=== PATIENT | female | born 2000 ===

== ENCOUNTER 2021-02-09 17:54 | Outpatient (CLI) | payer OTHER ==
[2021-02-09 18:31] VITALS: BP 106/60
[2021-02-09] MEDS ORDERED: LACTATED RINGERS 1,000 ML IV ONE (18:37)
[2021-02-09 19:09] LABS: Bilirubin,Urine NEG (Negative); Blood,Urine NEG (Negative); Color,Urine Yellow (Yellow); Protein,Urine <15 mg/dL mg/dL (Negative)
[2021-02-09] MEDS ORDERED: ONDANSETRON 4 MG/2 ML INJ IV ONE (20:29)
[2021-02-09] MEDS ORDERED: ONDANSETRON 4 MG/2 ML INJ ONE (20:30)
--- NOTE | 2021-02-09 23:01 | Ultrasound Report ---
ULTRASOUND OBSTETRIC LIMITED ULTRASOUND BIOPHYSICAL PROFILE INDICATION / CLINICAL INFORMATION: well being. Clinical Gestational Age (GA) in weeks, days: 34 weeks TECHNIQUE: Transabdominal. COMPARISON: None available. FINDINGS: BREATHING MOVEMENT = 2 GROSS BODY MOVEMENT = 2 TONE = 2 QUALITATIVE AMNIOTIC FLUID VOLUME = 2 TOTAL BIOPHYSICAL SCORE = 8/8 HEART RATE (beats per minute): 120 AMNIOTIC FLUID INDEX (cm) = 13.2 (normal = 7-24 cm) PRESENTATION: Cephalic. ADDITIONAL FINDINGS: Placenta is located anteriorly without evidence of previa. Placental grade is 1 IMPRESSION: 1. Biophysical Score = 8/8 2. Single viable IUP in a cephalic presentation with normal EMMANUEL. Signer Name: Lupe Aguila MD Signed: 02/09/2021 10:56 PM Workstation Name: [id number]
== END 2021-02-09 21:00 | disposition home or self-care (01) ==
LOC: TRG 17:54 → APU 17:55 → TRG 21:00
PROVIDERS: ATTEND Obstetrics & Gynecology
DX: Z34.93 Encounter for supervision of normal pregnancy, unspecified, third trimester (principal); Z3A.34 34 weeks gestation of pregnancy
CPT/HCPCS: 59025; 76815; 76819; 81001; 96360; 96361; 96374; J2405; J7120

== ENCOUNTER 2021-03-22 21:48 | Inpatient (IN) | payer OTHER ==
[2021-03-23] MEDS ORDERED: LACTATED RINGERS 1,000 ML IV ONE (00:31)
--- NOTE | 2021-03-23 03:16 | Ultrasound Report ---
ULTRASOUND OBSTETRIC LIMITED ULTRASOUND BIOPHYSICAL PROFILE INDICATION / CLINICAL INFORMATION: TERM. Clinical Gestational Age (GA) in weeks, days: 40 TECHNIQUE: Transabdominal. COMPARISON: 02/09/2021 FINDINGS: BREATHING MOVEMENT = 0 GROSS BODY MOVEMENT = 2 TONE = 2 QUALITATIVE AMNIOTIC FLUID VOLUME = 2 TOTAL BIOPHYSICAL SCORE = 8/8 HEART RATE (beats per minute): 158 AMNIOTIC FLUID INDEX (cm) = 14.4 (normal = 7-24 cm) PRESENTATION: Cephalic. ADDITIONAL FINDINGS: None. IMPRESSION: 1. Biophysical Score = 6/8 Signer Name: Tee Sandy MD Signed: 03/23/2021 3:11 AM Workstation Name: [id number] [employer]
[2021-03-23] MEDS ORDERED: LIDOCAINE (2%) 20 MG/1 ML VIAL 20 ML MDV INFILTRATI ONE ×2 (03:51→23:58)
[2021-03-23] MEDS ORDERED: BUTORPHANOL 2 MG/1 ML INJ IV PRN (03:51)
[2021-03-23] MEDS ORDERED: fentaNYL 100 MCG/2 ML INJ IV PRN (03:51)
[2021-03-23] MEDS ORDERED: miSOPROStol 200 MCG TAB PR PRN (03:51)
[2021-03-23] MEDS ORDERED: OXYTOCIN 10 UNIT/1 ML INJ IM PRN (03:51)
[2021-03-23] MEDS ORDERED: ACETAMINOPHEN 325 MG TAB PO PRN (03:51)
[2021-03-23] MEDS ORDERED: ePHEDrine SULFATE 50 MG/1 ML INJ IV PRN ×2 (03:51→15:34)
[2021-03-23] MEDS ORDERED: LOPERAMIDE 2 MG CAP PO PRN (03:51)
[2021-03-23] MEDS ORDERED: METHYLERGONOVINE MALEATE 0.2 MG/ML VIAL IM PRN (03:51)
[2021-03-23] MEDS ORDERED: MINERAL OIL 30 ML ORAL LIQD PO PRN (03:51)
[2021-03-23] MEDS ORDERED: CARBOPROST TROMETHAMINE 250 MCG/1 ML INJ IM PRN (03:51)
[2021-03-23] MEDS ORDERED: TERBUTALINE 1 MG/1 ML INJ SUB-Q PRN (03:51)
[2021-03-23] MEDS ORDERED: OXYTOCIN DRIP 30 UNITS/500 ML BAG IV SCH ×2 (04:00)
--- NOTE | 2021-03-23 04:02 | History and Physical Report ---
History of Present Illness Date of examination: 03/23/21 Date of admission: 03/23/21 Chief complaint: Contractions History of present illness: 21 year old female presents to L&D with contractions. Patient was found to have regular contractions and be in early labor. BPP 02/10. Patient received care at [facility] and records are available. LMP 05/25/20. EDC 03/23/21. significant for the following: vitamin D insufficiency (supplemented with vitamin D), rubella nonimmune, varicella nonimmune. labs are as follows: B+, antibody screen negative, rubella nonimmune, RPR nonreactive, hepatitis B surface antigen negative, HIV negative, varicella nonimmune, hemoglobin electrophoresis AA, gonorrhea negative, chlamydia negative, trichomonas negative, OSB negative, 1 hour sugar test 105, GBS negative. Past History Past Medical History: no pertinent history Past Surgical History: no surgical history [facility] History: denies: chlamydia, gonorrhea, hepatitis B, hepatitis C, herpes, HIV, syphilis, trichomonas Family/Genetic History: hypertension Social history: lives with family, full code. denies: smoking, alcohol abuse, prescription drug abuse, IV drug use - Obstetrical History Expected Date of Delivery: 03/23/21 Actual Gestation: 40 Week(s) 0 Day(s) : 1 Para: 0 Hx # Term Pregnancies: 0 Number of Pregnancies: 0 Spontaneous Abortions: 0 Induced : 0 Number of Living Children: 0 Medications and Allergies Allergies Allergy/AdvReac Type Severity Reaction Status Date / Time cefuroxime axetil AdvReac Hives Verified 05/01/16 15:37 [From Ceftin] Home Medications Medication Instructions Recorded Confirmed Last Taken Type Pnv Plus Multivit Tab 1 tab PO QDAY 02/09/21 02/09/21 02/08/21 20:00 History Active Meds: Active Medications Acetaminophen (Acetaminophen 325 Mg Tab) 650 mg PO Q4H PRN PRN Reason: Pain, Mild (1-3) Butorphanol Tartrate (Butorphanol 2 Mg/1 Ml Inj) 1 mg IV Q2H PRN PRN Reason: Pain, Moderate(4-6) LABOR PAIN Carboprost Tromethamine (Carboprost Tromethamine 250 Mcg/1 Ml Inj) 250 mcg IM ONCE PRN PRN Reason: Uterine Bleeding Ephedrine Sulfate (Ephedrine Sulfate 50 Mg/1 Ml Inj) 10 mg IV Q2M PRN PRN Reason: Hypotension Fentanyl (Fentanyl 100 Mcg/2 Ml Inj) 100 mcg IV Q2H PRN PRN Reason: Pain,Severe (7-10) LABOR PAIN Oxytocin/Sodium Chloride (Pitocin/Ns 30 Unit/500ml) 30 units in 500 mls @ 2 mls/hr IV TITR DANIELLE; Protocol Lactated Ringer's (Lactated Ringers) 1,000 mls @ 125 mls/hr IV DIRECT DANIELLE Oxytocin/Sodium Chloride (Pitocin/Ns 30 Unit/500ml) 30 units in 500 mls @ 40 mls/hr IV TITR DANIELLE; Protocol Lidocaine (Lidocaine (2%) 20 Mg/1 Ml Vial 20 Ml Mdv) 20 ml INFILTRATI ONCE ONE Stop: 03/23/21 03:52 Loperamide HCl (Loperamide 2 Mg Cap) 2 mg PO ONCE PRN PRN Reason: give with Hemabate Methylergonovine Maleate (Methylergonovine Maleate 0.2 Mg/Ml Vial) 0.2 mg IM ONCE PRN PRN Reason: Uterine Bleeding Mineral Oil (Mineral Oil 30 Ml Oral Liqd) 30 ml PO QHS PRN PRN Reason: Constipation Misoprostol (Misoprostol 200 Mcg Tab) 800 mcg VA ONCE PRN PRN Reason: Uterine Bleeding Oxytocin (Oxytocin 10 Unit/1 Ml Inj) 10 unit IM ONCE PRN PRN Reason: Uterine Bleeding Terbutaline Sulfate (Terbutaline 1 Mg/1 Ml Inj) 0.25 mg SUB-Q ONCE PRN PRN Reason: Hyperstimulation/Hypertonicity Review of Systems All systems: negative (contractions) - Vital Signs Vital signs: Vital Signs Pulse Pulse Ox 29 L 85 03/22/21 22:53 03/22/21 22:53 Temp Pulse Resp BP Pulse Ox 98 H 109/62 99 03/23/21 00:52 03/23/21 00:52 03/22/21 23:23 - Physical Exam Abdomen: Positive: normal appearance, soft. Negative: tenderness, guarding, rigidity Genitourinary (Female): Positive: normal external genitalia, normal perenium. Negative: perineal/vulvar lesions Uterus: Positive: enlarged. Negative: tender Anus/Rectum: Positive: normal perianal skin Extremities: Negative: tenderness, edema - Obstetrical FHR: category 1 Uterine Contraction Monitor Mode: External Cervical Dilatation: 3 Cervical Effacement Percentage: 70 station: -2 Uterine Contraction Pattern: Regular Uterine Contraction Intensity: Mild Results All other labs normal. Assessment and Plan A: at 40 weeks gestation. GBS negative. Early labor. BPP 6/8. P: Admit. Continuous EFM. Pitocin augmentation of labor if needed.
[2021-03-23] MEDS: LACTATED RINGERS 1,000 ML IV SCH ×3 (04:29→23:09)
[2021-03-23 05:02] LABS: Hematocrit 30.7 % (30.3-42.9); Hemoglobin 10.4 gm/dl (10.1-14.3); Mean Corpuscular HGB Conc 34 % (30-34); Mean Corpuscular Volume 83 fl (79-97); Platelet Count 307 K/mm3 (140-440); Red Blood Count 3.69 M/mm3 (3.65-5.03); Red Cell Distribution Width 14.6 % (13.2-15.2)
--- NOTE | 2021-03-23 10:24 | Progress Note ---
Subjective - Subjective Date of service: 03/23/21 Interval history: AROM clear 4cm/80/-2 FHT Category 1 [place]ay: irregular,palpate mild plan for oxytocin for AOL CFM Maternal/ well being reassuring at bedside Dino South MD Objective - Vital Signs Vital Signs: Vital Signs - 12hr 03/22/21 03/22/21 03/22/21 22:53 22:58 23:03 Temperature Pulse Rate 29 L 85 95 H Respiratory Rate Blood Pressure Blood Pressure [Right] O2 Sat by Pulse 85 99 99 Oximetry 03/22/21 03/22/21 03/22/21 23:08 23:13 23:18 Temperature Pulse Rate 84 88 88 Respiratory Rate Blood Pressure Blood Pressure [Right] O2 Sat by Pulse 99 99 99 Oximetry 03/22/21 03/23/21 03/23/21 23:23 00:52 04:10 Temperature 97.9 F Pulse Rate 89 98 H Respiratory 20 Rate Blood Pressure 109/62 Blood Pressure [Right] O2 Sat by Pulse 99 Oximetry 03/23/21 03/23/21 03/23/21 04:11 04:16 04:21 Temperature Pulse Rate 101 H 98 H 89 Respiratory Rate Blood Pressure 113/67 Blood Pressure [Right] O2 Sat by Pulse 97 98 98 Oximetry 03/23/21 03/23/21 03/23/21 04:26 04:31 04:36 Temperature Pulse Rate 85 119 H 104 H Respiratory Rate Blood Pressure Blood Pressure [Right] O2 Sat by Pulse 98 97 98 Oximetry 03/23/21 03/23/21 03/23/21 04:41 04:46 04:51 Temperature Pulse Rate 117 H 113 H 88 Respiratory Rate Blood Pressure Blood Pressure [Right] O2 Sat by Pulse 99 98 97 Oximetry 03/23/21 03/23/21 03/23/21 04:56 05:01 05:06 Temperature Pulse Rate 99 H 85 78 Respiratory Rate Blood Pressure Blood Pressure [Right] O2 Sat by Pulse 97 97 99 Oximetry 03/23/21 03/23/21 03/23/21 05:11 05:16 05:21 Temperature Pulse Rate 87 82 80 Respiratory Rate Blood Pressure Blood Pressure [Right] O2 Sat by Pulse 97 98 97 Oximetry 03/23/21 03/23/21 03/23/21 05:26 05:31 05:36 Temperature Pulse Rate 86 78 87 Respiratory Rate Blood Pressure Blood Pressure [Right] O2 Sat by Pulse 98 98 98 Oximetry 03/23/21 03/23/21 03/23/21 05:41 05:46 05:51 Temperature Pulse Rate 79 77 80 Respiratory Rate Blood Pressure Blood Pressure [Right] O2 Sat by Pulse 97 97 97 Oximetry 03/23/21 03/23/21 03/23/21 05:56 06:01 06:06 Temperature Pulse Rate 83 84 86 Respiratory Rate Blood Pressure Blood Pressure [Right] O2 Sat by Pulse 97 98 97 Oximetry 03/23/21 03/23/21 03/23/21 06:11 06:16 06:21 Temperature Pulse Rate 85 80 86 Respiratory Rate Blood Pressure Blood Pressure [Right] O2 Sat by Pulse 97 97 98 Oximetry 03/23/21 03/23/21 03/23/21 06:26 06:31 06:36 Temperature Pulse Rate 94 H 87 90 Respiratory Rate Blood Pressure Blood Pressure [Right] O2 Sat by Pulse 98 97 98 Oximetry 03/23/21 03/23/21 03/23/21 06:41 06:46 06:51 Temperature Pulse Rate 89 82 92 H Respiratory Rate Blood Pressure Blood Pressure [Right] O2 Sat by Pulse 98 98 98 Oximetry 03/23/21 03/23/21 03/23/21 06:56 07:01 07:06 Temperature Pulse Rate 86 80 87 Respiratory Rate Blood Pressure Blood Pressure [Right] O2 Sat by Pulse 98 98 96 Oximetry 03/23/21 03/23/21 03/23/21 07:11 07:16 07:21 Temperature Pulse Rate 89 91 H 87 Respiratory Rate Blood Pressure Blood Pressure [Right] O2 Sat by Pulse 98 99 97 Oximetry 03/23/21 03/23/21 03/23/21 07:26 07:31 07:41 Temperature Pulse Rate 94 H 87 84 Respiratory Rate Blood Pressure Blood Pressure [Right] O2 Sat by Pulse 99 99 99 Oximetry 03/23/21 03/23/21 03/23/21 07:46 07:51 07:56 Temperature Pulse Rate 93 H 85 94 H Respiratory Rate Blood Pressure Blood Pressure [Right] O2 Sat by Pulse 99 98 98 Oximetry 03/23/21 03/23/21 03/23/21 08:01 08:06 08:11 Temperature Pulse Rate 89 84 99 H Respiratory Rate Blood Pressure Blood Pressure [Right] O2 Sat by Pulse 99 98 99 Oximetry 03/23/21 03/23/21 03/23/21 08:14 08:16 08:21 Temperature Pulse Rate 86 92 H 80 Respiratory Rate Blood Pressure Blood Pressure [Right] O2 Sat by Pulse 94 98 98 Oximetry 03/23/21 03/23/21 03/23/21 08:26 08:31 08:32 Temperature Pulse Rate 85 95 H 99 H Respiratory Rate Blood Pressure 100/66 Blood Pressure [Right] O2 Sat by Pulse 99 98 Oximetry 03/23/21 03/23/21 03/23/21 08:36 08:40 08:41 Temperature 98.3 F Pulse Rate 89 88 85 Respiratory 16 Rate Blood Pressure Blood Pressure 100/66 [Right] O2 Sat by Pulse 98 98 97 Oximetry 03/23/21 03/23/21 03/23/21 08:46 08:51 08:53 Temperature Pulse Rate 85 87 84 Respiratory Rate Blood Pressure Blood Pressure [Right] O2 Sat by Pulse 96 95 92 Oximetry 03/23/21 03/23/21 03/23/21 08:56 09:00 09:01 Temperature Pulse Rate 88 76 87 Respiratory Rate Blood Pressure Blood Pressure [Right] O2 Sat by Pulse 96 94 85 Oximetry 03/23/21 03/23/21 03/23/21 09:05 09:06 09:11 Temperature Pulse Rate 82 81 81 Respiratory Rate Blood Pressure Blood Pressure [Right] O2 Sat by Pulse 87 90 94 Oximetry 03/23/21 03/23/21 03/23/21 09:15 09:16 09:24 Temperature Pulse Rate 92 H 90 89 Respiratory Rate Blood Pressure Blood Pressure [Right] O2 Sat by Pulse 94 99 100 Oximetry 03/23/21 03/23/21 03/23/21 09:29 09:34 09:39 Temperature Pulse Rate 78 82 81 Respiratory Rate Blood Pressure Blood Pressure [Right] O2 Sat by Pulse 98 97 97 Oximetry 03/23/21 03/23/21 03/23/21 09:44 09:49 09:54 Temperature Pulse Rate 76 78 80 Respiratory Rate Blood Pressure Blood Pressure [Right] O2 Sat by Pulse 98 99 99 Oximetry 03/23/21 03/23/21 03/23/21 09:59 10:04 10:09 Temperature Pulse Rate 76 78 80 Respiratory Rate Blood Pressure Blood Pressure [Right] O2 Sat by Pulse 99 99 98 Oximetry 03/23/21 03/23/21 03/23/21 10:14 10:16 10:19 Temperature Pulse Rate 83 110 H 102 H Respiratory Rate Blood Pressure Blood Pressure [Right] O2 Sat by Pulse 98 94 98 Oximetry - Labs Labs: Laboratory Results - last 24 hr 03/23/21 03/23/21 03/23/21 04:47 04:47 04:47 WBC 9.7 RBC 3.69 Hgb 10.4 Hct 30.7 MCV 83 MCH 28 MCHC 34 RDW 14.6 Plt Count 307 Syphilis IgG Antibody Nonreactive Blood Type B POSITIVE Antibody Screen Negative
[2021-03-23] MEDS ORDERED: NALOXONE 2 MG/2 ML INJ IV PRN (15:34)
[2021-03-23] MEDS ORDERED: LACTATED RINGERS 250 ML IV SOLN IV ONE (15:34)
[2021-03-23] MEDS ORDERED: NalbUPHINE 10 MG/1 ML INJ IV PRN (15:34)
--- NOTE | 2021-03-23 15:56 | Anesthesia Consultation ---
Anesthesia Consult and Med Hx Date of service: 03/23/21 - Airway Anesthetic Teeth Evaluation: Good ROM Head & Neck: Adequate Mental/Hyoid Distance: Adequate Mallampati Class: Class I Intubation Access Assessment: Good - Pulmonary Exam CTA: Yes - Cardiac Exam Cardiac Exam: RRR - Pre-Operative Health Status ASA Pre-Surgery Classification: ASA2 Proposed Anesthetic Plan: Epidural - Pulmonary Hx Smoking: No Hx Asthma: No Hx Sleep Apnea: No - Cardiovascular System Hx Hypertension: No Hx Heart Attack/AMI: No Hx Angina: No - Central Nervous System Hx Seizures: No Hx Psychiatric Problems: No - Gastrointestinal Hx Gastroesophageal Reflux Disease: No - Endocrine Hx Renal Disease: No Hx Liver Disease: No Hx Insulin Dependent Diabetes: No Hx Non-Insulin Dependent Diabetes: No Hx Hypothyroidism: No Hx Hyperthyroidism: No - Hematic Hx Anemia: No Hx Sickle Cell Disease: No - Other Systems Hx Alcohol Use: No
--- NOTE | 2021-03-23 15:58 | Progress Note ---
Labor Epidural - Labor Epidural Start Time: 15:42 Stop Time: 15:52 Performed by:: JOSE SERRANO Procedure: Patient is requesting epidural for labor and pain. H&P, labs were reviewed. Patient IDed, H&P reviewed, all questions and concerns were answered, and consent was signed. Timeout was performed at bedside. Patient in sitting position. Sterile prep and drape was performed. 3ml of 1% lidocaine skin wheal at L[3]- L [4]. 18-gauge NowForce epidural needle was advanced to loss of resistance with air technique 4cm. Negative CSF negative blood. Epidural catheter advanced to [11] centimeters. [negative] Aspiration [negative] test dose. Sterile dressing applied. Patient tolerated procedure.
[2021-03-23] MEDS ORDERED: diphenhydrAMINE 50 MG/ML VIAL IV PRN (16:00)
[2021-03-23] MEDS ORDERED: fentaNYL-BUPIV 2 MCG/ML-0.125% 200 MCG/100 ML BAG EPIDURAL SCH (16:00)
[2021-03-23] MEDS ORDERED: ONDANSETRON 4 MG/2 ML INJ IV PRN (16:00)
--- NOTE | 2021-03-23 17:00 | Progress Note ---
Subjective - Subjective Date of service: 03/23/21 Interval history: GBS negative from culture taken 02/27/2021 Dion South MD Objective - Vital Signs Latest vital signs: Vital Signs Temp Pulse Resp BP BP Pulse Ox 03/23/21 16:57 86 107/54 03/23/21 16:54 86 100 03/23/21 16:49 92 H 99 03/23/21 16:44 98 H 100 03/23/21 16:39 86 99 03/23/21 16:34 106 H 99 03/23/21 16:29 84 95/60 98 03/23/21 16:24 79 98 03/23/21 16:19 118 H 99 03/23/21 16:18 91 H 98/56 03/23/21 16:14 96 H 100/59 99 03/23/21 16:12 96 H 95/55 03/23/21 16:10 103 H 92/53 03/23/21 16:09 82 99 03/23/21 16:08 100 H 96/53 03/23/21 16:06 100 H 100/62 03/23/21 16:04 95 H 96/56 99 03/23/21 16:02 88 109/57 03/23/21 16:00 97 H 118/62 03/23/21 15:59 105 H 124/63 99 03/23/21 15:54 107 H 98 03/23/21 15:53 102 H 111/67 03/23/21 15:49 102 H 99 03/23/21 15:44 101 H 99 03/23/21 15:39 104 H 99 03/23/21 15:34 103 H 99 03/23/21 15:33 67 88 03/23/21 15:29 92 H 100 03/23/21 15:24 99 H 99 03/23/21 15:19 110 H 100 03/23/21 15:14 98 H 100 03/23/21 15:09 80 100 03/23/21 15:04 90 100 03/23/21 14:59 93 H 99 03/23/21 14:50 81 100 03/23/21 14:45 86 100 03/23/21 14:40 99 H 100 03/23/21 14:35 83 99 03/23/21 14:30 79 100 03/23/21 14:25 84 100 0719/21 14:20 86 100 0719/21 14:19 91 H 93 07/ 14:15 86 100 07/21 14:10 81 100 07/21 14:05 86 100 07/21 14:00 75 98 0719/21 13:49 83 98 07/21 13:44 77 100 07/21 13:39 87 98 07 13:34 87 97 07 13:29 80 96 07 13:24 85 98 07/21 13:19 78 98 03/23/21 13:14 76 98 07/ 13:09 82 100 07/ 13:04 79 100 03/23/21 12:59 82 99 03/23/21 12:54 82 99 03/23/21 12:49 89 98 03/23/21 12:44 87 99 03/23/21 12:39 99 03/23/21 12:34 80 100 03/23/21 12:29 90 99 03/23/21 12:24 84 99 03/23/21 12:19 88 99 03/23/21 12:14 85 99 03/23/21 12:09 88 99 03/23/21 12:04 92 H 99 03/23/21 11:59 80 98 03/23/21 11:54 84 98 03/23/21 11:49 87 98 03/23/21 11:44 105 H 98 03/23/21 11:39 104 H 98 03/23/21 11:34 84 98 03/23/21 11:29 94 H 98 03/23/21 11:24 101 H 97 21 11:19 90 98 03/23/21 11:14 103 H 97 03/23/21 11:09 93 H 97 03/23/ 11:04 92 H 97 03/23/21 10:59 99 H 98 03/23/21 10:54 109 H 98 03/23/ 10:49 102 H 99 03/23/21 10:44 108 H 99 03/23/21 10:39 96 H 99 03/23/21 10:34 131 H 100 07/21 10:29 113 H 99 21 10:24 131 H 100 03/23/21 10:19 102 H 98 1921 10:16 110 H 94 21 10:14 83 98 21 10:09 80 98 21 10:04 78 99 03/23/21 09:59 76 99 21 09:54 80 99 03/23/21 09:49 78 99 03/23/21 09:44 76 98 03/23/21 09:39 81 97 03/23/21 09:34 82 97 03/23/21 09:29 78 98 03/23/21 09:24 89 100 03/23/21 09:16 90 99 03/23/21 09:15 92 H 94 03/23/21 09:11 81 94 03/23/21 09:06 81 90 03/23/21 09:05 82 87 03/23/21 09:01 87 85 03/23/21 09:00 76 94 03/23/21 08:56 88 96 03/23/21 08:53 84 92 03/23/21 08:51 87 95 03/23/21 08:46 85 96 03/23/21 08:41 85 97 03/23/21 08:40 98.3 F 88 16 100/66 98 03/23/21 08:36 89 98 03/23/21 08:32 99 H 100/66 03/23/21 08:31 95 H 98 03/23/21 08:26 85 99 03/23/21 08:21 80 98 03/23/21 08:16 92 H 98 03/23/21 08:14 86 94 03/23/21 08:11 99 H 99 03/23/21 08:06 84 98 03/23/21 08:01 89 99 03/23/21 07:56 94 H 98 03/23/21 07:51 85 98 03/23/21 07:46 93 H 99 03/23/21 07:41 84 99 03/23/21 07:31 87 99 03/23/21 07:26 94 H 99 03/23/21 07:21 87 97 03/23/21 07:16 91 H 99 03/23/21 07:11 89 98 03/23/21 07:06 87 96 03/23/21 07:01 80 98 03/23/21 06:56 86 98 03/23/21 06:51 92 H 98 03/23/21 06:46 82 98 03/23/21 06:41 89 98 03/23/21 06:36 90 98 03/23/21 06:31 87 97 03/23/21 06:26 94 H 98 03/23/21 06:21 86 98 03/23/21 06:16 80 97 03/23/21 06:11 85 97 03/23/21 06:06 86 97 03/23/21 06:01 84 98 03/23/21 05:56 83 97 03/23/21 05:51 80 97 03/23/21 05:46 77 97 03/23/21 05:41 79 97 03/23/21 05:36 87 98 03/23/21 05:31 78 98 03/23/21 05:26 86 98 03/23/21 05:21 80 97 03/23/21 05:16 82 98 03/23/21 05:11 87 97 03/23/21 05:06 78 99 03/23/21 05:01 85 97 03/23/21 04:56 99 H 97 03/23/21 04:51 88 97 03/23/21 04:46 113 H 98 03/23/21 04:41 117 H 99 03/23/21 04:36 104 H 98 03/23/21 04:31 119 H 97 03/23/21 04:26 85 98 03/23/21 04:21 89 98 03/23/21 04:16 98 H 113/67 98 03/23/21 04:11 101 H 97 03/23/21 04:10 97.9 F 20 03/23/21 00:52 98 H 109/62 03/22/21 23:23 89 99 03/22/21 23:18 88 99 03/22/21 23:13 88 99 03/22/21 23:08 84 99 03/22/21 23:03 95 H 99 03/22/21 22:58 85 99 03/22/21 22:53 29 L 85 Intake and Output 03/23/21 03/23/21 03/23/21 07:59 15:59 23:59 Intake Total 1000 Balance 1000 Intake: IV 1000 Lactated Ringers 1,000 ml 1000 @ 125 mls/hr IV DIRECT DANIELLE Rx#:[id number]
--- NOTE | 2021-03-23 17:59 | Event Note ---
Date: 03/23/21 Pt evaluated with some discomfort to left side of pelvis. Pelvic 4-5/90/-1 and IV pit at mu/min. IUPC placed to evaluate the adequacy of contraction. Epidural in progress. Nurse asked to turn pt to right lateral and rotate every 20min from side to side. GBS neg seen. If adequate for 4hrs without pelvic change, then alternate route of delivery may be done. FHR category I remains. Hopeful for . All questions encouraged and answered.
[2021-03-23] MEDS ORDERED: CALCIUM CARBONATE 500 MG TAB CHEW PO ONE (21:53)
[2021-03-23] MEDS ORDERED: AMPICILLIN/NS 2 GM/100 ML 2 GM/100 ML BAG IV ONE (23:00)
[2021-03-23] MEDS ORDERED: AMPICILLIN 2 GM in SODIUM CHLORIDE 0.9% 50 ML IV ONE (23:27)
--- NOTE | 2021-03-23 23:29 | Event Note ---
Date: 03/23/21 pt evaluated and Richa currently doing pelvic exam /+1 per her report. Category I FHR. Pitocin 16mu/min. Will give amp 2gm for prolong rupture of membranes. Pt remains afebrile. Epidural in progress. Expect .
--- NOTE | 2021-03-24 00:59 | Procedure Note ---
OB Delivery Note - Delivery Date of Delivery: 03/24/21 Surgeon: CHIDI BRYANT Estimated blood loss: other (350cc) - Vaginal Delivery presentation: vertex Delivery position: OA Intrapartum events: PROM->1hr before delivery, prolonged labor- > = 20hr, uterine atony Delivery induction: AROM Delivery augmentation: pitocin Delivery monitor: external FHT, external uterine, internal uterine Route of delivery: Delivery placenta: spontaneous Episiotomy: mediolateral (right) Delivery repair: chromic Anesthesia: local, epidural Delivery comments: protracted labor, AROM earlier on 03/23/21 by my colleague, remained on pitocin for almost 20hrs with adequate contractions. Asynclitic head delivered vaginally uncomplicated with flexed right forearm delivered next, followed by the body. pt given right mediolateral episiotomy and same repaired wtih 2-0 chromic running locked suture and subcutaneously with 2-0 chromic. Excellent hemostasis. Cytotec given per rectum for uterine atony. Baby with temp 100.4 and pt treated to with IV antibiotics x3 doses of ancef. Baby and mother doing well - A at 1 minute: 8 at 5 minutes: 9 Gender: Male (wt 3580g)
[2021-03-24] MEDS ORDERED: diphenhydrAMINE 25 MG CAP PO PRN (01:06)
[2021-03-24] MEDS ORDERED: WITCH HAZEL/ GLYCERIN PAD TP PRN (01:06)
[2021-03-24] MEDS ORDERED: PROMETHAZINE 25 MG TAB PO PRN (01:06)
[2021-03-24] MEDS ORDERED: oxyCODONE /ACETAMINOPHEN 5-325MG TAB PO PRN (01:06)
[2021-03-24] MEDS ORDERED: LANOLIN/ZINC/DIMETHICONE (LANSINOH) 7 GM TP PRN (01:06)
[2021-03-24] MEDS ORDERED: MAGNESIUM HYDROXIDE (MOM) ORAL LIQD UDC PO PRN (01:06)
[2021-03-24] MEDS ORDERED: LIDOCAINE (2%) 20 MG/1 ML VIAL 20 ML MDV INFILTRATI ONE (01:11)
[2021-03-24] MEDS: IBUPROFEN 600 MG TAB PO SCH ×3 (01:29→19:49)
[2021-03-24] MEDS ORDERED: OXYTOCIN DRIP 30 UNITS/500 ML BAG IV SCH (02:00)
--- NOTE | 2021-03-24 10:14 | Post Anesthesia Evaluation ---
- Post Anesthesia Evaluation Patient Participated: Yes Airway Patent: Yes Stable Respiratory Function: Yes Nausea/Vomiting: No Temp > 96.8F: Yes Pain Manageable: Yes Adequeate Hydration: Yes Anesthesia Complications: No Block Receding Appropriately: Yes Patient on Ventilator: No
[2021-03-24] MEDS: DOCUSATE SODIUM 100 MG CAP PO SCH (14:12)
[2021-03-24] MEDS: PRENATAL VIT27-FE FUMARATE-FOLIC ACID VIT TAB PO SCH (14:12)
[2021-03-24 16:49] LABS: Hematocrit 28.9 % (30.3-42.9); Hemoglobin 9.5 gm/dl (10.1-14.3)
[2021-03-25] MEDS: DOCUSATE SODIUM 100 MG CAP PO SCH ×3 (00:02→22:05)
[2021-03-25] MEDS: IBUPROFEN 600 MG TAB PO SCH ×4 (03:00→19:03)
--- NOTE | 2021-03-25 10:49 | Progress Note ---
Assessment and Plan - Patient Problems (1) Vaginal delivery Current Visit: Yes Status: Acute Plan to address problem: Patient doing well now day 1 status post spontaneous vaginal delivery. --Meeting goals. --Anticipate discharge in 24 to 48 hours. Subjective - Subjective Date of service: 03/25/21 Principal diagnosis: PPD1 Interval history: Patient doing well in period. She is breast-feeding with formula supplementation. Well supported with family members in the room. Otherwise meeting goals. Baby doing well in the room. Patient reports: appetite normal, voiding normally, pain well controlled : doing well Objective - Vital Signs Latest vital signs: Vital Signs Temp Pulse Resp BP BP Pulse Ox 03/25/21 09:10 97.8 F 99 H 18 102/53 03/25/21 08:27 18 03/25/21 01:06 98.7 F 103 H 18 122/69 100 03/24/21 20:14 98.0 F 94 H 18 100/42 99 03/24/21 15:33 98.2 F 93 H 18 104/52 98 03/24/21 11:31 98.8 F 86 18 102/58 98 Intake and Output 03/24/21 03/25/21 03/25/21 23:59 07:59 15:59 Intake Total 1460 800 320 Output Total 500 Balance 960 800 320 Intake: Oral 800 200 320 Intake, Free Water 660 600 Output: Urine 500 Void 500 Other: Total, Intake Amount 200 200 320 Total, Output Amount 500 # Voids Void 1 1 1 - Exam Abdomen: Present: normal appearance Uterus: Present: firm - Labs Labs: Abnormal lab results 03/24/21 Range/Units 15:41 Hgb 9.5 L (10.1-14.3) gm/dl Hct 28.9 L (30.3-42.9) %
[2021-03-25] MEDS: PRENATAL VIT27-FE FUMARATE-FOLIC ACID VIT TAB PO SCH (10:51)
[2021-03-26] MEDS: IBUPROFEN 600 MG TAB PO SCH ×2 (06:14→22:40)
--- NOTE | 2021-03-26 10:04 | Progress Note ---
Assessment and Plan A: S/P Asymptomatic anemia Tachycardia P: Continue routine pp care UA c&s ordered Fe prescribed Advised fooods high in Fe D/C home tomm if stable Subjective - Subjective Date of service: 03/26/21 Principal diagnosis: PPD 2 Patient reports: appetite normal, voiding normally, pain well controlled, ambulating normally : doing well, other (Denies sob, burning, pain, urgency upon urination), bottle feeding Objective - Vital Signs Latest vital signs: Vital Signs Temp Pulse Resp BP BP Pulse Ox 03/26/21 07:33 98.9 F 89 20 107/59 97 03/26/21 06:14 18 03/25/21 23:23 98.2 F 102 H 18 108/64 98 03/25/21 20:03 18 03/25/21 15:55 97.9 F 83 20 108/58 Intake and Output 03/25/21 03/26/21 03/26/21 22:59 06:59 14:59 Intake Total 720 240 Balance 720 240 Intake: Oral 360 Intake, Free Water 360 240 Other: Total, Intake Amount 360 # Voids Void 1 2 1 - Exam Breasts: Present: normal Abdomen: Present: normal appearance, soft, normal bowel sounds Vulva: both: normal Uterus: Present: normal, firm, fundal height below umbilicus Extremities: Present: normal Incision: Present: normal, intact
[2021-03-26 18:59] LABS: Bacteria,Urine 1+ /HPF (Negative); Bilirubin,Urine NEG (Negative); Blood,Urine LG (Negative); Color,Urine Yellow (Yellow); Mucus,Urine FEW /HPF; Urobilinogen,Urine < 2.0 mg/dL (<2.0)
[2021-03-26 19:03] LABS: WBC,Urine > 182.0 /HPF (0.0-6.0)
[2021-03-26] MEDS: DOCUSATE SODIUM 100 MG CAP PO SCH (21:42)
[2021-03-26] MEDS: FERROUS SULFATE 325 MG TAB PO SCH (21:43)
[2021-03-27] MEDS: IBUPROFEN 600 MG TAB PO SCH (09:28)
[2021-03-27] MEDS ORDERED: NITROFURANTOIN MONOHYD/M-CRYST 100 MG CAP PO SCH (10:00)
[2021-03-27] MEDS: PRENATAL VIT27-FE FUMARATE-FOLIC ACID VIT TAB PO SCH (10:25)
[2021-03-27] MEDS: FERROUS SULFATE 325 MG TAB PO SCH (10:26)
--- NOTE | 2021-03-27 12:35 | Progress Note ---
Assessment and Plan A: day 3 S/P . Anemia. UTI. P: Discharge patient home today. Discussed with patient discharge instructions and warning signs. Advised patient to continue taking her vitamins and iron supplements at home. 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 (Rx Macrobid 100 mg, #14, 1 po BID called in to [facility] on [address]). Advised patient to follow up at [facility] office in 1 week. Patient voiced understanding of all instructions. Subjective - Subjective Date of service: 03/27/21 Principal diagnosis: day 3 S/P ; anemia; UTI Interval history: Patient desires discharge home today. Has asymptomatic anemia; agrees to take her iron supplements at home. Patient declines to await urine culture results (will not be resulted until tomorrow). Agrees to take Macrobid at home for UTI; Rx called to [facility] pharmacy on [address]. Patient reports small amount of lochia. Voiding without difficulty. Patient denies abdominal pain, back pain, flank pain, fever or chills, nausea or malaise. Patient reports: appetite normal, voiding normally, flatus, ambulating normally, no dizzy ambulation, no pain well controlled, no nauseated [place]: doing well, nursing well Objective - Vital Signs Latest vital signs: Vital Signs Temp Pulse Resp BP Pulse Ox 03/27/21 08:53 97.9 F 79 18 106/67 98 03/27/21 01:03 98.5 F 89 16 113/64 97 03/26/21 15:41 98.4 F 95 H 20 119/68 99 Intake and Output 03/26/21 03/27/21 03/27/21 23:59 07:59 15:59 Intake Total 240 480 Output Total 200 Balance 40 480 Intake: Oral 240 Intake, Free Water 480 Output: Urine 200 Void 200 Other: Total, Intake Amount 240 Total, Output Amount 200 # Voids Void 3 - Exam Cardiovascular: Present: Regular rate Lungs: Present: Clear to auscultation Abdomen: Present: normal appearance, soft. Absent: distention, tenderness, guarding, rigidity Uterus: Present: normal, firm, fundal height below umbilicus. Absent: bogginess, tenderness Extremities: Present: normal. Absent: tenderness, edema - Labs Labs: Abnormal lab results 03/26/21 Range/Units 18:20 Urine WBC (Auto) > 182.0 H (0.0-6.0) /HPF
--- NOTE | 2021-03-27 12:40 | Discharge Summary ---
Providers - Providers Date of Admission: 03/23/21 03:51 Date of discharge: 03/27/21 Attending physician: APOLINAR TONG MD Primary care physician: APOLINAR TONG MD Hospitalization Reason for admission: active labor Delivery: Episiotomy: mediolateral Other procedures: none complications: none Discharge diagnosis: IUP at term delivered [place] baby: male Pertinent studies: Labs Hospital course: Stable hospital course Condition at discharge: Good Disposition: DC-01 TO HOME OR SELFCARE - Discharge Diagnoses (1) Term delivered Status: Acute (2) Anemia Status: Acute (3) UTI (urinary tract infection) Status: Acute Plan - Provider Discharge Summary Activity: routine, no sex for 6 weeks, no heavy lifting 4 weeks, no strenuous exercise Diet: routine Instructions: routine Additional instructions: Continue taking your vitamin and iron supplement at home. 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 pharmacy on [address] and take exactly as prescribed. Follow up at [facility] in 1 week. Call your doctor immediately for: * Fever > 100.5 * Heavy vaginal bleeding ( >1 pad per hour) * Severe persistent headache * Shortness of breath * Reddened, hot, painful area to leg or breast - Follow up plan Follow up: APOLINAR TONG MD [Primary Care Provider] - 7 Days Forms: [facility] Discharge Summary, Discharge Signature Page
[2021-03-27 13:54] VITALS: BP 107/72
== END 2021-03-27 16:18 | disposition home or self-care (01) | DRG 774 ==
LOC: TRG 21:48 → APU 21:49 → TRG 03-23 03:51 → LD 03-23 03:51 → OB 03-24 02:35
PROVIDERS: ADMIT Obstetrics & Gynecology; ATTEND Obstetrics & Gynecology
PROC: 10H07YZ Insertion of Other Device into Products of Conception, Via Natural or Artificial Opening (ICD-10-PCS; 2021-03-23)
PROC: 10907ZC Drainage of Amniotic Fluid, Therapeutic from Products of Conception, Via Natural or Artificial Opening (ICD-10-PCS; 2021-03-23)
PROC: 10E0XZZ Delivery of Products of Conception, External Approach (ICD-10-PCS; principal; 2021-03-24)
PROC: 0W8NXZZ Division of Female Perineum, External Approach (ICD-10-PCS; 2021-03-24)
DX: O62.2 Other uterine inertia (principal); O75.4 Other complications of obstetric surgery and procedures; O63.9 Long labor, unspecified; O90.81 Anemia of the puerperium; D64.9 Anemia, unspecified; O86.20 Urinary tract infection following delivery, unspecified; R00.0 Tachycardia, unspecified; Z37.0 Single live birth; Z82.49 Family history of ischemic heart disease and other diseases of the circulatory system; Z88.1 Allergy status to other antibiotic agents; Z20.822 Contact with and (suspected) exposure to COVID-19
CPT/HCPCS: 36415; 76815; 76819; 81001; 85014; 85018; 85027; 86592; 86850; 86900; 86901; 87086; G0378; J0595; J2590; J3490; J7120; U0003